=== PATIENT | male | born 1955 | race Caucasian/White ===

== ENCOUNTER 2017-07-31 12:13 | Emergency (ER) | payer SELFPAY ==
[~2017-07-31] VITALS: Ht 165.1 cm; Wt 81.6 kg
[2017-07-31] MEDS ORDERED: TDAP DIPH,PERTUSS,TET VAC/PF 0.5 ML DISP.SYRIN IM ONE ×2 (12:34→12:45)
--- NOTE | 2017-07-31 13:11 | NUR ---
Patient discharged to home in stable conditon & brisk steady gait. Written and verbal after care instructions given to patient in Vietnamese and [place]. Patient verbalizes understanding of instructions.
== END 2017-07-31 13:12 | disposition home or self-care (01) ==
LOC: ER 12:16
DX: S61.210A Laceration without foreign body of right index finger without damage to nail, initial encounter (principal); X58.XXXA Exposure to other specified factors, initial encounter; Y93.H9 Activity, other involving exterior property and land maintenance, building and construction; Y92.89 Other specified places as the place of occurrence of the external cause; Y99.8 Other external cause status
CPT/HCPCS: 90715; A4663; J3490